=== PATIENT | male | born 1955 | race Caucasian/White ===

== ENCOUNTER 2020-08-09 05:56 | Day surgery (SDC) | payer MEDICARE, OTHER ==
--- NOTE | 2020-08-02 13:50 | HP ---
DATE OF SURGERY: 08/09/2020 HISTORY OF PRESENT ILLNESS: The patient is a 65 year-old male who presented to the office in need of endoscopy. He has a history of colon cancer. He had a right hemicolectomy back in 2011. He denies any symptoms currently. His last colonoscopy was about two years ago. PAST MEDICAL HISTORY: Colon cancer. PAST SURGICAL HISTORY: Right hemicolectomy. Laparoscopic cholecystectomy. Umbilical hernia repair. Ventral hernia repair. ALLERGIES: NKDA. MEDICATIONS: Naproxen, Paxil. FAMILY HISTORY: Colon cancer. SOCIAL HISTORY: Negative tobacco. Reports occasional alcohol. REVIEW OF SYSTEMS: CONSTITUTIONAL: Denies fever or chills. CHEST: No shortness of breath. CVS: Denies chest pain. ABDOMEN: Denies abdominal pain, nausea, vomiting, diarrhea, constipation or rectal bleeding. : Denies dysuria or hematuria. PHYSICAL EXAMINATION: GENERAL: No acute distress. CHEST: Nonlabored. No shortness of breath. CVS: Regular rate and rhythm. ABDOMEN: Soft, nontender to palpation. EXTREMITIES: No edema. NEUROLOGIC: Alert. PSYCHIATRIC: Appropriate. IMPRESSION: History of colon cancer. PLAN: Colonoscopy with Dr. Sandro Bañuelos. As dictated by Maria Del Carmen Wade NP.
[~2020-08-09 05:56] MED LIST: DIPRIVAN 200 MG/20 ML IV ONE; Ketamine HCl 50 MG/ML ONE
[2020-08-09] MEDS ORDERED: Lactated Ringers 1,000 ML IV ONE (06:09)
[2020-08-09] MEDS ORDERED: Lactated Ringers 1,000 ML IV SCH (06:30)
[2020-08-09 09:27] VITALS: O2SAT 97
[2020-08-09 09:31] VITALS: BP 155/84; PULSE 73
--- NOTE | 2020-08-09 09:47 | OP ---
SURGERY DATE/TIME: 08/09/2020811 PREOPERATIVE DIAGNOSIS: Colon cancer, advised hemicolectomy. POSTOPERATIVE DIAGNOSIS: Colon cancer, advised hemicolectomy. PROCEDURE: Colonoscopy. SURGEON: Sandro Bañuelos M.D. ANESTHESIA: MAC. INDICATION: The patient presents for two year follow up. DESCRIPTION OF PROCEDURE: The patient is taken to surgery. MAC sedation provided. Anal digital examination satisfactory. Mild internal hemorrhoids were present. Scope was advanced to the anastomosis right at the distal right of midline, mid transverse iliocolotomy. Blind end was normal. Functional end was normal. The entire 60 degrees of the anastomosis was totally normal. Circumferential withdrawal. No mucosal lesions were noted. Mild internal hemorrhoids were noted. The patient tolerated the procedure satisfactorily. PLAN: Follow up two years.
== END 2020-08-09 09:20 | disposition home or self-care (01) ==
LOC: SDC 05:56
PROVIDERS: ATTEND Surgery
DX: Z08 Encounter for follow-up examination after completed treatment for malignant neoplasm (principal); Z85.038 Personal history of other malignant neoplasm of large intestine; K64.8 Other hemorrhoids; Z90.49 Acquired absence of other specified parts of digestive tract; Z79.899 Other long term (current) drug therapy
CPT/HCPCS: J2704

== ENCOUNTER 2024-03-21 16:01 | Emergency (ER) | payer MEDICARE, OTHER ==
[2024-03-21 16:18] VITALS: BP 166/73; PULSE 80; RESP 20; TEMP 99.2; O2SAT 99
--- NOTE | 2024-03-21 16:36 | ERPHSYRPT ---
- History of Present Illness Time Seen by Provider: 03/21/24 16:25 Patient Subjective Stated Complaint: Shoulder pain-right Triage Nursing Assessment: Patient ambulated back to ED and transferred self to bed. Patient A+O X3. Patient's skin pink, warm and dry. Patient states he fell landing on his right shoulder while planting cedar trees Patient complains of right shoulder pain that goes down his arms and into his neck 06/08. Physician History: Patient is a 68-year-old male who presents with a complaint of pain in the right shoulder. He was planning cedars and fell over 1 and landed on his right shoulder he felt a pop he has pain radiating from the shoulder up into the neck and down the right arm. Occurred: this afternoon Method of Injury: direct blow, fell Quality: aching, throbbing Severity of Pain-Max: moderate Severity of Pain-Current: moderate Extremities Pain Location: shoulder: right Modifying Factors: Improves With: movement Allergies/Adverse Reactions: No Known Drug Allergies Allergy (Verified 03/21/24 16:06) Home Medications: Omeprazole 20 mg PO DAILY 08/01/20 [History] PARoxetine HCL [Paxil] 10 mg PO DAILY 08/01/20 [History] Metoprolol Tartrate 25 mg [Lopressor 25MG Tab] 1 tab PO DAILY 03/21/24 [History] Primidone 50 MG [Mysoline 50Mg] 1 tab PO DAILY 03/21/24 [History] Simvastatin 10 mg [Zocor 10MG] 1 tab PO DAILY 03/21/24 [History] Hx Tetanus, Diphtheria Vaccination/Date Given: No Hx Influenza Vaccination/Date Given: No Hx Pneumococcal Vaccination/Date Given: No Immunizations Up to Date: Yes Travel Risk - International Travel Have you traveled outside of the country in past 3 weeks: No - Emerging Infectious Disease Are you exhibiting symptoms associated with any current EIDs: No - Review of Systems Constitutional: No Fever, No Chills Eyes: No Symptoms Ears, Nose, & Throat: No Symptoms Respiratory: No Cough, No Dyspnea Cardiac: No Chest Pain, No Edema, No Syncope Abdominal/Gastrointestinal: No Abdominal Pain, No Nausea, No Vomiting, No Diarrhea Genitourinary Symptoms: No Dysuria Musculoskeletal: Joint Pain, No Back Pain, No Neck Pain Skin: No Rash Neurological: No Dizziness, No Focal Weakness, No Sensory Changes Psychological: No Symptoms Endocrine: No Symptoms All Other Systems: Reviewed and Negative - Past Medical History Pertinent Past Medical History: Yes Neurological History: Peripheral Neuropathy ENT History: No Pertinent History Cardiac History: High Cholesterol, Hypertension Respiratory History: No Pertinent History Endocrine Medical History: No Pertinent History Musculoskeletal History: No Pertinent History GI Medical History: Colorectal Cancer History: No Pertinent History Psycho-Social History: No Pertinent History Male Reproductive Disorders: No Pertinent History Other Medical History: colon cx with mets s/p resection (last treatment was in 2012) with peripheral neuropathy d/t chemotherapy - Past Surgical History Past Surgical History: Yes Neuro Surgical History: No Pertinent History Cardiac: No Pertinent History Respiratory: No Pertinent History Gastrointestinal: Appendectomy, Cholecystectomy, Colon Resection, Hernia Repair Genitourinary: No Pertinent History Musculoskeletal: Orthopedic Surgery Male Surgical History: No Pertinent History Other Surgical History: tonsillectomy, left shoulder,right hand,right carpal tunnel release,back, liver resection. - Social History Smoking Status: Never smoker Exposure to second hand smoke: No Drug Use: none Patient Lives Alone: No - Nursing Vital Signs Nursing Vital Signs: Initial Vital Signs Temperature 99.2 F 03/21/24 16:07 Pulse Rate 80 03/21/24 16:07 Respiratory Rate 20 03/21/24 16:07 Blood Pressure 166/73 03/21/24 16:07 O2 Sat by Pulse Oximetry 99 03/21/24 16:07 Pain Scale Pain Intensity 7 - Physical Exam General Appearance: alert Eyes, Ears, Nose, Throat Exam: moist mucous membranes Neck Exam: tenderness lateral (Right) Cardiovascular/Respiratory Exam: regular rate/rhythm, no respiratory distress Abdominal Exam: non-tender, No guarding Back Exam: normal inspection, No vertebral tenderness Shoulder Exam: limited ROM, pain, soft tissue tenderness Elbow/Forearm Exam: normal inspection, non-tender Wrist Exam: normal inspection, non-tender Hand Exam: normal inspection, non-tender Neuro/Tendon Exam: normal sensation, normal motor functions Mental Status Exam: alert, oriented x 3, cooperative Skin Exam: normal color, warm, dry SpO2 Interpretation: normal SpO2: 99 O2 Delivery: Room Air Procedures - Splinting Time of Procedure: 17:00 Location of Splint: Right Type of Splint: Other (Sling and swath) Splint Applied By: ED Nurse Pre-Proc Neuro Vasc Exam: normal Post-Proc Neuro Vasc Exam: neurovascular intact, unchanged from pre-exam - Course Nursing assessment & vital signs reviewed: Yes - Radiology Exams C-Spine X-ray Interpretation: Reviewed by me Right Shoulder X-ray Interpretation: Reviewed by me Ordered Tests: Active Orders 24 hr Category Date Time Status Sling Application STAT Care 03/21/24 16:56 Ordered CERVICAL SPINE (2 OR 3 VIEW) Stat Exams 03/21/24 16:22 Completed SHOULDER Stat Exams 03/21/24 16:22 Completed - Progress Progress: unchanged Medical Desision Making - Diagnostic Testing Radiological Interpretation: Reviewed by me - Risk of complications Low Risk: Low risk of morbidity from additional dx testing or treatment - Departure Departure Disposition: Home Clinical Impression: Strain of AC joint Condition: Stable Critical Care Time: No Referrals: EVELYN KRUSE MD [Primary Care Provider] - Follow up/PCP as directed Instructions: Shoulder Sprain (DC) Prescriptions: Hydrocodone/Acetaminophen [Hydrocodone-Acetamin 5-325 mg] 1 tab PO Q6HPRN PRN 3 Days #12 tablet MDD 4 PRN Reason: Pain
--- NOTE | 2024-03-21 16:46 | XRAY ---
Indication: Pain following fall. Comparison: December 07, 2018 3 view cervical spine unchanged again demonstrating normal alignment with mild/moderate C5-C7 degenerative disc disease and mild bilateral carotid calcifications. No new/acute findings.
--- NOTE | 2024-03-21 16:46 | XRAY ---
Indication: Pain following fall. Comparison: None 3 view right shoulder demonstrates mild AC changes. No other bony, articular, or soft tissue abnormalities.
== END 2024-03-21 17:25 | disposition home or self-care (01) ==
LOC: ED 16:01
DX: S46.811A Strain of other muscles, fascia and tendons at shoulder and upper arm level, right arm, initial encounter (principal); W01.0XXA Fall on same level from slipping, tripping and stumbling without subsequent striking against object, initial encounter; Y93.H2 Activity, gardening and landscaping; E78.5 Hyperlipidemia, unspecified; I10 Essential (primary) hypertension; Z79.891 Long term (current) use of opiate analgesic; Z79.899 Other long term (current) drug therapy
CPT/HCPCS: 72040; 73030; 99283; L3650

== ENCOUNTER 2024-08-04 07:52 | Day surgery (SDC) | payer MEDICARE, OTHER ==
--- NOTE | 2024-08-03 09:10 | HP ---
HISTORY AND PHYSICAL ANTICIPATED DATE OF PROCEDURE: 08/04/2024. HISTORY OF PRESENT ILLNESS: The patient is a 69-year-old male who presents with a history of colon cancer. He had a colon resection and liver resection a few years ago. His last colonoscopy was 2 years ago[address] sees Dr[address] Pimentel, Oncology. He has no complaints currently. PAST MEDICAL HISTORY: Colon cancer, depression, GERD, hypertension, hyperlipidemia. MEDICATIONS: Pantoprazole, paroxetine, primidone. ALLERGIES: Negative. PAST SURGICAL HISTORY: Colon resection in 2012. SOCIAL HISTORY: Negative. FAMILY HISTORY: Alzheimer's, lymphoma. REVIEW OF SYSTEMS: CONSTITUTIONAL: Denies fever or chills. CHEST: Denies shortness of breath. CARDIOVASCULAR: Denies chest pain. ABDOMEN: Denies abdominal pain. PHYSICAL EXAMINATION: GENERAL: No acute distress. CARDIOVASCULAR: Regular rate and rhythm. RESPIRATORY: Nonlabored. No shortness of breath. ABDOMEN: Soft. ASSESSMENT: History of colon cancer. PLAN: Colonoscopy with Dr. Sandro Bañuelos. This report was dictated for Dr. Bañuelos by Maria Del Carmen Wade NP.
[2024-08-04 08:20] VITALS: RESP 16; TEMP 96.8
[2024-08-04] MEDS: Lactated Ringers 1,000 ML IV SCH (08:20)
[2024-08-04] MEDS ORDERED: Versed 2 MG/2 ML Injection ONE (09:58)
[2024-08-04] MEDS ORDERED: DIPRIVAN 200 MG/20 ML IV ONE (09:58)
[2024-08-04] MEDS ORDERED: Lactated Ringers 1,000 ML IV ONE (10:06)
[2024-08-04 10:26] VITALS: O2SAT 98
[2024-08-04 10:31] VITALS: BP 132/68; PULSE 58
--- NOTE | 2024-08-05 11:57 | OP ---
SURGERY DATE/TIME: 08/04/2024 [id number] PREOPERATIVE DIAGNOSIS: Followup colon cancer. POSTOPERATIVE DIAGNOSIS: Normal. Patient has normal anastomosis, normal ileocolonic anastomosis. He has an excellent normal colon. He has moderate internal hemorrhoids of no significance. PROCEDURE: Colonoscopy, complete. SURGEON: Sandro Bañuelos MD ANESTHESIA: General. COMPLICATIONS: None. CONDITION: Stable. INDICATION FOR PROCEDURE: Patient had a right hemicolectomy back in 2012. He also had a partial liver resection. He has been clean. He follows up every 2 years. DESCRIPTION OF PROCEDURE AND FINDINGS: He was taken to endoscopy. Anal digital examination was satisfactory. Prostate satisfactory. Scope was introduced. Scope advanced in the anastomosis, [id number] anastomosis. The elliptical anastomosis totally normal. No granulation tissue, nothing to biopsy. The small bowel end is cannulated for about 3 inches, is satisfactory. The blind end of the colon is satisfactory. On circumferential dome, no mucosal lesions noted. It is an excellent-appearing colon. He has moderate internal hemorrhoids. Anticipate followup 2 years.
== END 2024-08-04 10:54 | disposition home or self-care (01) ==
LOC: SDC 07:52
PROVIDERS: ATTEND Surgery
DX: Z08 Encounter for follow-up examination after completed treatment for malignant neoplasm (principal); Z85.038 Personal history of other malignant neoplasm of large intestine; K64.8 Other hemorrhoids
CPT/HCPCS: J2250; J2704

== ENCOUNTER 2025-09-27 14:24 | Day surgery (SDC) | payer MEDICARE, OTHER ==
[2012-09-23 11:46] VITALS: BP 128/75
[2025-09-27] MEDS ORDERED: BUPIVACAINE 0.5% VIAL IJ ONE (14:25)
[2025-09-27] MEDS ORDERED: LIDOCAINE HCL 1% 50 MG/5 ML VL IJ ONE (14:25)
[2025-09-27] MEDS ORDERED: methylPREDNISolone acetate IM ONE (14:25)
[2025-09-27] MEDS ORDERED: Lactated Ringers 1,000 ML IV ONE (15:56)
[2025-09-27] MEDS ORDERED: propofoL IV ONE (16:14)
--- NOTE | 2025-09-27 20:01 | XRAY ---
Indication: Right L4-S1 RFA. Intraoperative fluoroscopy provided for 18 seconds. 4 digital spot image submitted for interpretation demonstrates posterior needle tips projecting over expected right L4-S1 nerve roots. Correlate with intraoperative findings/report.
--- NOTE | 2025-09-28 09:18 | XRAY ---
18 seconds of fluoroscopy was used in surgery for a right L4-S1 RFA.
== END 2025-09-27 16:54 | disposition home or self-care (01) ==
LOC: SDC-PAIN 14:24
PROVIDERS: ATTEND Psychiatry & Neurology Pain Medicine
DX: M47.817 Spondylosis without myelopathy or radiculopathy, lumbosacral region (principal)

== ENCOUNTER 2025-10-11 11:42 | Day surgery (SDC) | payer MEDICARE, OTHER ==
[2012-09-23 11:46] VITALS: BP 128/75
[2025-10-11] MEDS ORDERED: methylPREDNISolone acetate IM ONE (11:43)
[2025-10-11] MEDS ORDERED: LIDOCAINE HCL 1% 50 MG/5 ML VL IJ ONE (11:43)
[2025-10-11] MEDS ORDERED: BUPIVACAINE 0.5% VIAL IJ ONE (11:43)
[2025-10-11] MEDS ORDERED: propofoL IV ONE (13:22)
[2025-10-11] MEDS ORDERED: Lactated Ringers 1,000 ML IV ONE (13:57)
--- NOTE | 2025-10-11 16:37 | XRAY ---
Indication: Left L4-S1 RFA. Intraoperative fluoroscopy provided for 13 seconds. 4 digital spot image submitted for interpretation demonstrates posterior needle tips projecting over expected left L4-S1 nerve roots. Correlate with intraoperative findings/report.
--- NOTE | 2025-10-11 16:43 | XRAY ---
13 seconds of fluoroscopy was used in surgery for a left L4-S1 RFA.
== END 2025-10-11 13:58 | disposition home or self-care (01) ==
LOC: SDC-PAIN 11:42
PROVIDERS: ATTEND Psychiatry & Neurology Pain Medicine
DX: M47.817 Spondylosis without myelopathy or radiculopathy, lumbosacral region (principal)